=== PATIENT | male | born 1970 | race Caucasian/White ===

== ENCOUNTER → 2021-12-10 09:20 | Outpatient (BNVA) | payer OTHER, SELFPAY | PROVIDERS: PCP Internal Medicine; Visit Provider Nurse Practitioner Family ==

== ENCOUNTER 2021-12-28 08:48 | Outpatient (REF) | payer OTHER, SELFPAY ==
--- NOTE | ~2021-12-28 | MR_ITS ---
EXAMINATION: MR LUMBAR SPINE WITHOUT AND WITH CONTRAST CLINICAL INFORMATION: Back spasms. COMPARISON: There are no prior studies available for comparison at time of dictation. A report of MRI scan performed at [facility] 01/19/2021 was reviewed. TECHNIQUE: MRI of the lumbar spine was obtained using routine sequences with and without contrast. Intravenous contrast: Gadavist9 mL FINDINGS: VERTEBRAL BODIES AND PARASPINAL STRUCTURES: There is a mild dextroscoliosis. There is narrowing of intervertebral disc height at L4-L5 and L5-S1. The vertebral bodies have normal height and contour. There are degenerative endplate changes with relatively extensive edematous signal toward the right at L5-S1. No fractures are demonstrated. Overall, marrow signal is homogenous. There is moderate enhancement of the endplates on the right at L5-S1, and also along a paraspinal surgical track from a right-sided L5 laminectomy. The visualized retroperitoneal and pelvic structures are unremarkable. CONUS MEDULLARIS AND CAUDA EQUINA: Normal, terminating at the level of T12-L1. The lower thoracic spinal cord appears normal. The cauda equina nerve roots and filum terminale appear normal. There is no abnormal enhancement of the spinal cord or cauda equina nerve roots. SPINAL LEVELS: L1-L2: The facet joints appear normal bilaterally. Disc contour is normal. There is no central stenosis or foraminal narrowing. L2-L3: The facet joints appear normal bilaterally. Disc contour is normal. There is no central stenosis or foraminal narrowing. L3-L4: The facet joints appear normal bilaterally. Disc contour is normal. There is no central stenosis or foraminal narrowing. L4-L5: There is mild bilateral facet arthropathy. There is a small disc protrusion posteriorly in the midline with an annular fissure which flattens the ventral thecal sac, but there is no central stenosis. There is no foraminal nerve root impingement. L5-S1: There are sequelae of a right-sided hemilaminectomy. There is a broad-based posterior disc protrusion which is most prominent centrally and toward the right and extends into the right neural foramen with impingement on the exiting right L5 nerve root. There is also narrowing of the right subarticular recess with impingement on the traversing right S1 nerve root. There is minimal enhancement around the traversing right S1 nerve root, which may be consistent with scarring or granulation. There is no central stenosis. MR/MR lumbar spine wo/w con IMPRESSION: 1. There are sequelae of a right-sided hemilaminectomy at L5-S1. There are edematous endplate signal changes on the right at this level with enhancement, and there is also enhancement around the right S1 nerve root, consistent with granulation or scarring. There is no central stenosis. 2. Minimal spondylosis and facet arthropathy are demonstrated at L4-L5.
== END 2021-12-28 08:49 | disposition home or self-care (01) ==
LOC: HO.MRI 08:48
PROVIDERS: PCP Internal Medicine; Visit Provider Nurse Practitioner Family
DX: M47.27 Other spondylosis with radiculopathy, lumbosacral region (principal); M96.1 Postlaminectomy syndrome, not elsewhere classified; M53.87 Other specified dorsopathies, lumbosacral region
CPT/HCPCS: 72158; A9585

== ENCOUNTER → 2022-01-11 13:21 | Outpatient (BNVA) | payer OTHER, SELFPAY | PROVIDERS: PCP Internal Medicine; Visit Provider Nurse Practitioner Family ==

== ENCOUNTER → 2022-02-08 09:44 | Outpatient (BNVA) | payer OTHER, SELFPAY | PROVIDERS: PCP Internal Medicine; Visit Provider Nurse Practitioner Family | DX: Z13.89 Encounter for screening for other disorder (principal) ==